=== PATIENT | female | born 1975 | race Caucasian/White ===

== ENCOUNTER 2017-11-28 13:41 | Emergency (ER) | payer BC ==
[~2017-11-28] VITALS: Ht 152.4 cm; Wt 52.2 kg
[2017-11-28 13:56] VITALS: BP 132/89
[2017-11-28] MEDS ORDERED: HYDROCODONE/APAP 5/325MG 1 EACH TABLET ONE (14:24)
[2017-11-28] MEDS ORDERED: HYDROCODONE/APAP 5/325MG 1 EACH TABLET PO ONE (14:30)
== END 2017-11-28 14:28 | disposition home or self-care (01) ==
LOC: ER 13:46
DX: M54.5 Low back pain (principal)
CPT/HCPCS: A4606; Z7610